=== PATIENT | female | born 1960 | race Two or more races ===

== ENCOUNTER → 2024-11-11 | Outpatient (CLI) | payer MEDICAID, SELFPAY ==
--- NOTE | 2024-11-11 15:03 | XR_ITS ---
Examination: Cervical spine 3 views Technique one AP lateral coned AP odontoid cervical spine 3 views Exam date and time: November 11, 2024 1532 hours INDICATIONS: Neck pain several years radiating down both arms FINDINGS: Adequate alignment cervical vertebral bodies No cervical fracture Intact odontoid Moderate to advanced disc narrowing C3-C4, C4-C5, C5-C6, C6-C7 with posterior osteophyte formation most prominent C6-C7 IMPRESSION: Diffuse significant cervical degenerative disc disease
--- NOTE | 2024-11-11 15:03 | XR_ITS ---
Examination: Bilateral hands, 6 views. Technique: AP, Oblique, Lateral each hand total 6 views Date and time of exam: November 11, 2024 1416 hours INDICATIONS: Bilateral hand pain months Findings: Moderate juxta-articular bone demineralization No fracture or dislocation involving Bilateral mild to moderate osteoarthritis distal interphalangeal joints second through fifth digits and interphalangeal joints first digits No erosive arthritis No cortical bone destruction No opaque foreign bodies Mild osteoarthritis radiocarpal and intercarpal joints as well as metacarpophalangeal joints IMPRESSION: Osteoarthritis as above No erosive arthritis
--- NOTE | 2024-11-11 15:03 | XR_ITS ---
Examination: Lumbar spine, 5 views Technique: Lumbar spine AP, lateral, coned lateral lower lumbar spine, bilateral obliques 5 views Exam date and time: November 11, 2024 1516 hours INDICATIONS: Low back pain several years FINDINGS: Severe osteopenia Lumbar levoscoliosis 12 degrees Mild to moderate bilateral hip osteoarthritis Diffuse significant facet arthropathy, advanced degenerative disc disease L1-L2 Grade 2 spondylolisthesis L5 on S1 with advanced degenerative disc disease at this level IMPRESSION: Grade 2 spondylolisthesis L5 on S1 with advanced degenerative disc disease at this level Also advanced degenerative disc disease L1-L2
== END | disposition home or self-care (01) ==
PROVIDERS: PCP Physician Assistant; Referring Provider Nurse Practitioner Primary Care; Visit Provider Nurse Practitioner Primary Care
DX: M50.31 Other cervical disc degeneration, high cervical region (principal); M19.042 Primary osteoarthritis, left hand; M19.041 Primary osteoarthritis, right hand; M43.17 Spondylolisthesis, lumbosacral region; M51.379 Other intervertebral disc degeneration, lumbosacral region without mention of lumbar back pain or lower extremity pain; M51.369 Other intervertebral disc degeneration, lumbar region without mention of lumbar back pain or lower extremity pain
CPT/HCPCS: 72040; 72110; 73130

== ENCOUNTER → 2024-12-21 | Outpatient (CLI) | payer MEDICAID, SELFPAY ==
--- NOTE | 2024-12-21 14:30 | XR_ITS ---
Examination: Screening digital mammography, bilateral Computer aided detection 3-D breast Tomosynthesis, bilateral Date and time of exam: 12/21/2024, 2:47 PM Comparisons: June 2014 Indications: Screening Technique: Nonmagnified MLO, CC views of the breasts to been obtained, reconstructed from 3-D Tomosynthesis images. R2 computer aided detection program utilized for evaluation of suspicious masses and/or abnormal calcifications. 3-D Tomosynthesis images obtained. Technologist: Findings: There are scattered areas of fibroglandular density. No evidence of abnormal masses or suspicious calcifications. Impression: BI-RADS category 1: Negative findings (within normal) Recommend 1 year follow-up mammogram
== END | disposition home or self-care (01) ==
LOC: CDIM 14:38
PROVIDERS: Referring Provider Nurse Practitioner Primary Care; Visit Provider Nurse Practitioner Primary Care
DX: Z12.31 Encounter for screening mammogram for malignant neoplasm of breast (principal); R92.313 Mammographic fatty tissue density, bilateral breasts
CPT/HCPCS: 77063; 77067

== ENCOUNTER → 2025-03-12 | Outpatient (CLI) | payer MEDICAID, SELFPAY ==
--- NOTE | 2025-03-12 14:00 | XR_ITS ---
Examination: MRI lumbar spine without contrast Date and time of exam: March 12, 2025, 1431 hours Comparison June 20, 2016 INDICATIONS: Lower back pain 3 years after a fall with numbness and paresthesias in the legs and feet Technique: Multiple MRI axial and sagittal sections lumbar spine. Sagittal T2-weighted images, TR 3500, TE 118 T1 weighted transverse sections, TR 688 T8.5, T2-weighted sagittal sections T1 weighted sagittal sections TR 621, TE 30 T2 axial sections, TR 4, 190, TE 84. Findings: Grade 2 spondylolisthesis L5 on S1 Advanced degenerative disc disease L5-S1 as well as L1-L2 Diffuse lumbar disc desiccation L5-S1 grade 2 spondylolisthesis with 3 mm central lumbar disc bulge produces severe bilateral L5 ganglionic compression More cephalad levels unremarkable IMPRESSION: Advanced degenerative disc disease L1-L2, L5-S1 L5-S1 grade 2 spondylolisthesis with 3 mm MRI lumbar disc bulge produces severe bilateral L5 ganglionic compression
--- NOTE | 2025-03-12 14:30 | XR_ITS ---
Examination: MRI cervical spine without intravenous contrast Date and time of exam: March 12, 2025 1350 hours INDICATIONS: Patient fell 3 years ago thank you the neck, neck pain Technique: Multiple axial and sagittal sections of the cervical spine to been obtained. T2 weighted sagittal sections, TR 3, 270, TE 117 T1-weighted sagittal sections, TR 500, TE 11 T1-weighted axial sections, TR 607, TE 12, axial sections TR 18, TE 27 and T2 weighted transverse sections, TR 3920, TE 122. Findings: Adequate alignment cervical vertebral bodies on the lateral view No cervical fracture Intact odontoid Diffuse mild to moderate cervical disc narrowing Adequate marrow signal cervical vertebral bodies No cervical syrinx cavity C2-C3 mild right neural foraminal stenosis C3-C4 advanced right and moderate left neural foraminal stenosis C4-C5 advanced bilateral neural foraminal stenosis with 2 mm central subarticular osteophyte disc complex C5-C6 advanced bilateral neural foraminal stenosis with 2 mm central subarticular osteophyte disc complex C6-C7 moderate bilateral neural foraminal stenosis C7-T1 no disc protrusion IMPRESSION: C3-C4 advanced right and moderate left neural foraminal stenosis C4-C5, C5-C6 advanced bilateral neural foraminal stenosis C6-C7 moderate bilateral neural foraminal stenosis
== END | disposition home or self-care (01) ==
LOC: SMRI 13:20
PROVIDERS: PCP Nurse Practitioner Primary Care; Referring Provider Nurse Practitioner Primary Care; Visit Provider Nurse Practitioner Primary Care
DX: M51.370 Other intervertebral disc degeneration, lumbosacral region with discogenic back pain only (principal); M51.360 Other intervertebral disc degeneration, lumbar region with discogenic back pain only; G95.20 Unspecified cord compression; M43.17 Spondylolisthesis, lumbosacral region; M48.02 Spinal stenosis, cervical region
CPT/HCPCS: 72141; 72148